=== PATIENT | female | born 1990 | race Caucasian/White ===

== ENCOUNTER 2020-02-25 14:43 | Emergency (ER) | payer OTHER ==
[~2020-02-25] VITALS: Ht 170.2 cm; Wt 103.0 kg
--- NOTE | 2020-02-25 16:04 | NUR ---
ACCOUNT CLASSIFICATION CLERK: PT WALKED BACK FROM LOBBY TO ROOM AT THIS TIME.
--- NOTE | 2020-02-25 16:20 | NUR ---
PT REPORTS LLQ PAIN 6/10 FOR THE PAST FOUR DAYS, PT WITH HX OF OVARIAN CYST AND STATES SHE THINKS IT MAY BE A "FLARE UP" PT DENIES URINARY SYMPTOMS. PT UNABLE TO PROVIDE URINE SAMPLE AT THIS TIME. PT TO BP, CONT PULSE OX
[2020-02-25] MEDS ORDERED: ONDANSETRON 2MG/ML, 2ML ONE (16:43)
[2020-02-25 16:47] LABS: BASOPHILS # (AUTO) 0.03 x10^3/uL (0-0.1); BASOPHILS % (AUTO) 0 % (0-1); EOSINOPHILS # (AUTO) 0.06 x10^3/uL (0-0.4); EOSINOPHILS % (AUTO) 1 % (1-7); LYMPHOCYTES # (AUTO) 1.93 x10^3/uL (1-3.4); LYMPHOCYTES % (AUTO) 18 % (22-44); MD NO; MEAN CORPUSCULAR HEMOGLOBIN 29.5 pg (27.0-34.8); MEAN CORPUSCULAR HGB CONC 33.4 g/dL (32.4-35.8); MEAN PLATELET VOLUME 10.9 fL (7.4-10.4); MONOCYTES # (AUTO) 0.62 x10^3/uL (0.2-0.8); MONOCYTES % (AUTO) 6 % (2-9); NEUTROPHILS # (AUTO) 8.14 x10^3/uL (1.8-6.8); NEUTROPHILS % (AUTO) 76 % (42-75); PLATELET COUNT 250 x10^3/uL (130-400); RED BLOOD COUNT 5.17 x10^6/uL (3.82-5.3); RED CELL DISTRIBUTION WIDTH 12.9 % (9.6-15.2)
[2020-02-25 16:59] LABS: ANION GAP 7 mmol/L (5-15); CALCIUM 9.2 mg/dL (8.5-10.1); CHLORIDE 110 mmol/L (98-107); CREATININE 0.81 mg/dL (0.55-1.02)
[2020-02-25] MEDS ORDERED: SODIUM CHLORIDE FLUSH 10ML SYR IVF ONE (17:00)
[2020-02-25] MEDS ORDERED: PLEASE ENTER ALLERGIES MC SCH (17:00)
[2020-02-25] MEDS ORDERED: ONDANSETRON 2MG/ML, 2ML IVPush ONE (17:00)
[2020-02-25] MEDS ORDERED: MORPHINE SULFATE 4 MG/ML, 1ML IVPush PRN (17:00)
[2020-02-25] MEDS ORDERED: MORPHINE SULFATE 4 MG/ML, 1ML ONE (17:06)
[2020-02-25 17:17] LABS: MICROSCOPIC NOT IND
--- NOTE | 2020-02-25 17:44 | NUR ---
PT TO US AT THIS TIME
--- NOTE | 2020-02-25 18:49 | NUR ---
REPORT FROM RUBEN SCHAEFFER.
--- NOTE | 2020-02-25 18:55 | NUR ---
Kamila jimenez in ED - 02/25/20 at 1856 by SERENA PT REPORTS PAIN IS GONE, DECLINES PAIN MEDICATION AT THIS TIME. ENCOURAGED PT TO LEAVE URINE SAMPLE, PROVIDED WATER.
[2020-02-25] MEDS ORDERED: LISI-167 PO (19:04)
[2020-02-25] MEDS ORDERED: METF500T17 PO (19:04)
--- NOTE | 2020-02-25 19:04 | NUR ---
PT REPORTS PAIN HAS DECREASED TO 5/10 ON PAIN SCALE. VSS.
[2020-02-25 20:12] VITALS: BP 153/98
== END 2020-02-25 20:36 | disposition home or self-care (01) ==
LOC: ED 18:13
DX: K57.32 Diverticulitis of large intestine without perforation or abscess without bleeding (principal); I10 Essential (primary) hypertension
CPT/HCPCS: 36415; 74176; 76830; 80048; 81003; 82040; 84703; 85025; 96374; 96375; 99285; J2270; J2405

== ENCOUNTER 2020-11-23 13:40 | Emergency (ER) | payer MEDICARE, OTHER ==
[~2020-11-23] VITALS: Ht 167.6 cm; Wt 96.8 kg
[~2020-11-23 13:40] MED LIST: LISI-167 PO; METF500T17 PO
--- NOTE | 2020-11-23 14:12 | NUR ---
BREAK RN: PT REPORTS SHE HAS A HISTORY OF DIVERTICULITIS AND RECENTLY FINISHED ABX. PT REPORTS SHE IS STILL HAVING LEFT SIDED ABD PAIN WITH NAUSEA. VS STABLE. NO ACUTE DISTRESS NOTED. CALL LIGHT IN PLACE. WILL CONTINUE TO MONITOR.
[2020-11-23] MEDS ORDERED: HYDROmorphone 1 MG/ML, 1ML INJ IV ONE (14:30)
[2020-11-23] MEDS ORDERED: SODIUM CHLORIDE FLUSH 10ML SYR IVF ONE (14:30)
[2020-11-23] MEDS ORDERED: ONDANSETRON 2MG/ML, 2ML IVPush ONE (14:30)
[2020-11-23] MEDS ORDERED: HYDROmorphone 1 MG/ML, 1ML INJ ONE (14:38)
[2020-11-23] MEDS ORDERED: ONDANSETRON 2MG/ML, 2ML ONE (14:38)
[2020-11-23 14:47] LABS: BASOPHILS % (AUTO) 1 % (0-1); EOSINOPHILS % (AUTO) 1 % (1-7); LYMPHOCYTES % (AUTO) 22 % (22-44); MEAN CORPUSCULAR HEMOGLOBIN 30.1 pg (27.0-34.8); MEAN CORPUSCULAR HGB CONC 33.3 g/dL (32.4-35.8); MEAN PLATELET VOLUME 10.1 fL (7.4-10.4); MONOCYTES % (AUTO) 4 % (2-9); NEUTROPHILS % (AUTO) 72 % (42-75); PLATELET COUNT 249 x10^3/uL (130-400); RED CELL DISTRIBUTION WIDTH 13.4 % (9.6-15.2)
[2020-11-23 14:56] LABS: ALANINE AMINOTRANSFERASE 44 U/L (12-78); ALBUMIN 4.2 g/dL (3.4-5.0); ANION GAP 5 mmol/L (5-15); CALCIUM 9.2 mg/dL (8.5-10.1); CHLORIDE 109 mmol/L (98-107); CREATININE 0.76 mg/dL (0.55-1.02)
[2020-11-23 14:57] LABS: MD NO
[2020-11-23 15:01] LABS: ALKALINE PHOSPHATASE 72 U/L (45-117); BILIRUBIN,TOTAL 1.3 mg/dL (0.2-1.0); TOTAL PROTEIN 7.7 g/dL (6.4-8.2)
--- NOTE | 2020-11-23 15:43 | NUR ---
UA SENT. PT AMUBLATED TO BATHROOM W STEADY GAIT
[2020-11-23 15:49] LABS: MICROSCOPIC NOT IND
--- NOTE | 2020-11-23 16:21 | NUR ---
PT IN IMAGING
[2020-11-23 17:41] VITALS: BP 145/81
--- NOTE | 2020-11-23 17:42 | NUR ---
Patient given discharge instructions and they have confirmed that they understand the instructions. Patient ambulatory with steady gait.
== END 2020-11-23 17:44 | disposition home or self-care (01) ==
LOC: ED 15:13
DX: N83.292 Other ovarian cyst, left side (principal); N83.291 Other ovarian cyst, right side; R10.32 Left lower quadrant pain; I10 Essential (primary) hypertension
CPT/HCPCS: 36415; 74176; 80053; 81003; 84703; 85025; 96374; 96375; 99284; J1170; J2405

== ENCOUNTER 2021-02-22 14:46 | Emergency (ER) | payer SELFPAY ==
[~2021-02-22] VITALS: Ht 170.2 cm; Wt 92.1 kg
[~2021-02-22 14:46] MED LIST changes: +CIPR500T87 PO; +METR500T PO; +ONDA4TAB13 PO
[2021-02-22 15:43] LABS: BASOPHILS % (AUTO) 1 % (0-1); EOSINOPHILS % (AUTO) 0 % (1-7); LYMPHOCYTES % (AUTO) 15 % (22-44); MEAN CORPUSCULAR HEMOGLOBIN 30.3 pg (27.0-34.8); MEAN CORPUSCULAR HGB CONC 33.6 g/dL (32.4-35.8); MONOCYTES % (AUTO) 4 % (2-9); NEUTROPHILS % (AUTO) 80 % (42-75); PLATELET COUNT 244 x10^3/uL (130-400); RED BLOOD COUNT 5.05 x10^6/uL (3.82-5.3); RED CELL DISTRIBUTION WIDTH 13.7 % (9.6-15.2)
[2021-02-22 15:51] LABS: ALANINE AMINOTRANSFERASE 31 U/L (12-78); ANION GAP 4 mmol/L (5-15); CALCIUM 9.5 mg/dL (8.5-10.1); CHLORIDE 112 mmol/L (98-107); CREATININE 0.81 mg/dL (0.55-1.02)
[2021-02-22 15:56] LABS: ALKALINE PHOSPHATASE 69 U/L (45-117); BILIRUBIN,TOTAL 2.7 mg/dL (0.2-1.0); TOTAL PROTEIN 7.8 g/dL (6.4-8.2)
--- NOTE | 2021-02-22 17:21 | NUR ---
PT W HX DIVERTIC AND WAS ADM HERE, WAS SUPPOSED TO HAVE F/U COLONOSCOPY TODAY THEN FOUND OUT SHE IS . ALSO NAUSEA THIS MONTH. ALSO LOWER ABD CRAMPING AND LOW BACK PAIN. UA WALKED TO LAB. LABS PENDING.
[2021-02-22 17:35] LABS: MICROSCOPIC NOT IND
--- NOTE | 2021-02-22 18:53 | NUR ---
assumed care from Ramila
--- NOTE | 2021-02-22 18:54 | NUR ---
REPORT TO PEBBLES SCHAEFFER.
[2021-02-22 19:33] VITALS: BP 146/84
== END 2021-02-22 21:40 | disposition home or self-care (01) ==
LOC: ED 15:30
DX: O26.891 Other specified pregnancy related conditions, first trimester (principal); R10.2 Pelvic and perineal pain; E80.7 Disorder of bilirubin metabolism, unspecified; I10 Essential (primary) hypertension; Z3A.01 Less than 8 weeks gestation of pregnancy
CPT/HCPCS: 36415; 76830; 80053; 81003; 84702; 85025; 99284